=== PATIENT | female | born 1955 | race Two or more races ===

== ENCOUNTER 2021-09-23 09:45 | Outpatient (CLI) | payer OTHER | END 2021-09-23 09:51 | disposition home or self-care (01) | LOC: RAD 09:45 | PROVIDERS: ATTEND Orthopaedic Surgery | DX: M25.561 Pain in right knee (principal); M25.562 Pain in left knee ==

== ENCOUNTER 2022-01-09 08:37 | Day surgery (SDC) | payer OTHER ==
[~2022-01-09] VITALS: Ht 167.6 cm; Wt 76.2 kg
[~2022-01-09 08:37] MED LIST: BUPROPION XL450 MG PO; CHILDREN'S ASPI81 MG PO; D3 + K2 DOTS 11 EACH PO; FOSAMAX70 MG PO; LIPITOR40 MG PO; SYNTHROID50 MCG PO; TOPROL XL25 M1 PO; TRAZODONE HCL100 MG PO
[2022-01-09] MEDS ORDERED: CEPHALEXIN500 MG PO (14:14)
[2022-01-09] MEDS ORDERED: CILOXAN5 ML OTIC (14:14)
== END 2022-01-09 16:45 | disposition home or self-care (01) ==
LOC: CIR.AMB 08:37
PROVIDERS: ATTEND Otolaryngology Otology & Neurotology
DX: H61.321 Acquired stenosis of right external ear canal secondary to inflammation and infection (principal); Z20.822 Contact with and (suspected) exposure to COVID-19; I10 Essential (primary) hypertension; Z71.6 Tobacco abuse counseling; F17.210 Nicotine dependence, cigarettes, uncomplicated; E03.9 Hypothyroidism, unspecified; Z85.828 Personal history of other malignant neoplasm of skin

== ENCOUNTER 2022-12-09 13:00 | Inpatient (IN) | payer OTHER ==
[~2022-12-09] VITALS: Ht 167.6 cm; Wt 74.8 kg
[~2022-12-09 13:00] MED LIST changes: +CEPHALEXIN500 MG PO; +CILOXAN5 ML OTIC
[2022-12-16] MEDS ORDERED: ELIQUIS2.5 MG PO (08:22)
[2022-12-16] MEDS ORDERED: PERCOCET 5-3251 EACH PO (08:22)
[2022-12-16] MEDS ORDERED: DUI500 PO (08:22)
== END 2022-12-17 22:57 | DRG 470 ==
LOC: O/R 12-15 06:20 → SURG 12-15 09:15 → SURH 12-15 13:08 → SURG 12-15 13:30 → SURH 12-17 22:57
PROVIDERS: ADMIT Orthopaedic Surgery; ATTEND Orthopaedic Surgery
PROC: 0SRD0J9 Replacement of Left Knee Joint with Synthetic Substitute, Cemented, Open Approach (ICD-10-PCS; principal; 2022-12-15 13:30)
DX: M17.12 Unilateral primary osteoarthritis, left knee (principal); D62 Acute posthemorrhagic anemia; I10 Essential (primary) hypertension; E03.9 Hypothyroidism, unspecified; Z96.652 Presence of left artificial knee joint; Z20.822 Contact with and (suspected) exposure to COVID-19